=== PATIENT | male | born 1975 | race Native Hawaiian/Other Pacific Islander ===

== ENCOUNTER 2018-11-22 10:42 | Emergency (ER) | payer OTHER ==
[~2018-11-22] VITALS: Ht 167.6 cm; Wt 72.6 kg
[2018-11-22 10:54] VITALS: TEMP 97.7
[2018-11-22 12:30] VITALS: BP 134/92
== END 2018-11-22 12:30 | disposition home or self-care (01) ==
LOC: ED 10:42
DX: M48.07 Spinal stenosis, lumbosacral region (principal); M51.37 Other intervertebral disc degeneration, lumbosacral region
CPT/HCPCS: 81000; 96372; 99283; J1885; J2360

== ENCOUNTER 2018-12-26 12:26 | Outpatient (CLI) | payer OTHER ==
[2018-12-26 13:47] LABS: PLATELET COUNT 338 K/uL (142-355)
[2018-12-26 14:02] LABS: POTASSIUM 4.1 mmol/L (3.6-5.2)
== END 2018-12-26 20:32 | disposition home or self-care (01) ==
LOC: LABW 12:26
PROVIDERS: Internal Medicine Medical Oncology
DX: C62.92 Malignant neoplasm of left testis, unspecified whether descended or undescended (principal)
CPT/HCPCS: 36415; 80053; 82105; 83615; 84702; 85027

== ENCOUNTER 2019-01-29 16:41 | Outpatient (CLI) | payer OTHER ==
[2019-01-29 17:04] LABS: PLATELET COUNT 435 K/uL (142-355)
[2019-01-29 17:10] LABS: POTASSIUM 4.4 mmol/L (3.6-5.2)
== END 2019-01-29 20:21 | disposition home or self-care (01) ==
LOC: LABW 16:41
PROVIDERS: Internal Medicine Medical Oncology
DX: C62.92 Malignant neoplasm of left testis, unspecified whether descended or undescended (principal)
CPT/HCPCS: 36415; 80053; 85027

== ENCOUNTER 2019-01-31 15:23 | Outpatient (CLI) | payer OTHER ==
[2019-01-31 16:29] LABS: PLATELET COUNT 404 K/uL (142-355)
[2019-01-31 16:43] LABS: POTASSIUM 4.9 mmol/L (3.6-5.2)
== END 2019-01-31 20:41 | disposition home or self-care (01) ==
LOC: LABW 15:23
PROVIDERS: Internal Medicine Medical Oncology
DX: C62.12 Malignant neoplasm of descended left testis (principal)
CPT/HCPCS: 36415; 80053; 84550; 85027

== ENCOUNTER 2019-02-14 07:43 | Outpatient (CLI) | payer OTHER ==
[2019-02-14 08:23] LABS: PLATELET COUNT 220 K/uL (142-355)
== END 2019-02-14 19:48 | disposition home or self-care (01) ==
LOC: LABW 07:43
PROVIDERS: Internal Medicine Medical Oncology
DX: C62.12 Malignant neoplasm of descended left testis (principal)
CPT/HCPCS: 36415; 80053; 84550; 85007; 85027

== ENCOUNTER 2019-02-21 08:03 | Outpatient (CLI) | payer OTHER ==
[2019-02-21 08:48] LABS: POTASSIUM 3.6 mmol/L (3.6-5.2)
[2019-02-21 09:59] LABS: PLATELET COUNT 373 K/uL (142-355)
== END 2019-02-21 19:10 | disposition home or self-care (01) ==
LOC: LABW 08:03
PROVIDERS: Internal Medicine Medical Oncology
DX: C62.12 Malignant neoplasm of descended left testis (principal)
CPT/HCPCS: 36415; 80053; 85007; 85027

== ENCOUNTER 2019-02-25 12:19 | Outpatient (CLI) | payer OTHER ==
[2019-02-25 12:56] LABS: PLATELET COUNT 396 K/uL (142-355)
[2019-02-25 13:05] LABS: POTASSIUM 3.4 mmol/L (3.6-5.2)
== END 2019-02-25 19:27 | disposition home or self-care (01) ==
LOC: LABW 12:19
PROVIDERS: Internal Medicine Medical Oncology
DX: C62.12 Malignant neoplasm of descended left testis (principal)
CPT/HCPCS: 36415; 80053; 84550; 85007; 85027

== ENCOUNTER 2019-03-25 07:37 | Outpatient (CLI) | payer OTHER ==
[2019-03-25 08:14] LABS: PLATELET COUNT 353 K/uL (142-355)
[2019-03-25 08:16] LABS: POTASSIUM 4.5 mmol/L (3.6-5.2)
== END 2019-03-25 20:10 | disposition home or self-care (01) ==
LOC: LABW 07:37
PROVIDERS: Internal Medicine Medical Oncology
DX: C62.12 Malignant neoplasm of descended left testis (principal)
CPT/HCPCS: 36415; 80053; 85007; 85027

== ENCOUNTER 2019-12-03 10:43 | Outpatient (CLI) | payer OTHER | END 2019-12-03 23:52 | disposition home or self-care (01) | LOC: RAD 10:43 | DX: S61.231A Puncture wound without foreign body of left index finger without damage to nail, initial encounter (principal) ==